=== PATIENT | female | born 1950 ===

== ENCOUNTER 2022-10-07 10:02 | Day surgery (SDC) | payer MEDICARE, OTHER ==
--- NOTE | 2022-10-07 08:37 | HP ---
DATE OF SURGERY: 10/07/2022 HISTORY OF PRESENT ILLNESS: The patient is a 72-year-old with some anemia. No gross bloody stools or change in bowel movements. Family history of brother of colon cancer. Last colonoscopy was a couple of years ago. She has anemia, hemoccult positive. The patient is in need of EGD and colonoscopy for further evaluation. PAST MEDICAL HISTORY: Hypertension, anemia, diabetes mellitus type II, hyperlipidemia. PAST SURGICAL HISTORY: Cholecystectomy. Parathyroidectomy. Hysterectomy. section in the past. MEDICATIONS: PreserVision, vitamin C, iron, aspirin, atorvastatin, amlodipine, labetalol, metformin. ALLERGIES: NKDA. FAMILY HISTORY: Alzheimer's Disease. Brother of colon cancer. SOCIAL HISTORY: No smoking or alcohol abuse. REVIEW OF SYSTEMS: Fourteen systems reviewed. No chest pain or palpitations. Other systems negative or noncontributory as above and per preadmission questionnaire. PHYSICAL EXAMINATION: Height 5' 1". BMI 41.5. GENERAL: No acute distress. HEENT: Sclerae nonicteric. EOMI. Oral mucous membranes moist. NECK: No JVD. CHEST: Equal excursion, nonlabored breathing. CVS: Regular rate and rhythm. ABDOMEN: Soft. No peritoneal signs. EXTREMITIES: No significant edema. NEURO: Alert, oriented, moving extremities symmetrically. RECTAL: Deferred timed to endoscopy exam. PSYCH: Appropriate mood and affect. SKIN: Dry. IMPRESSION: Anemia. I recommend EGD and colonoscopy. Shown the risk sheet and explained in detail including but not limited to bleeding or infection, risk of bowel injury or perforation, risk of missed or nondiagnosis or incomplete exam possibly requiring barium swallow, barium enema, other studies or procedures. General risk of anesthesia or sedation, risk of bowel prep but not limited to, consent obtained. Will proceed with EGD and colonoscopy as an outpatient.
[2022-10-07] MEDS ORDERED: Lactated Ringers 1,000 ML IV SCH (10:30)
[2022-10-07] MEDS ORDERED: Sodium Chloride 0.9% 1000 ML 1,000 ML ONE (10:49)
[2022-10-07] MEDS ORDERED: Lactated Ringers 1,000 ML IV ONE (10:52)
[2022-10-07] MEDS ORDERED: Xylocaine-Mpf 2% 5 Ml Vial ONE (11:48)
[2022-10-07] MEDS ORDERED: DIPRIVAN 200 MG/20 ML IV ONE ×2 (11:48→12:07)
[2022-10-07] MEDS ORDERED: ROBINUL ONE (12:06)
[2022-10-07] MEDS ORDERED: ATROPINE SULFATE 1MG ONE (12:11)
[2022-10-07 13:03] VITALS: O2SAT 98
[2022-10-07 13:22] VITALS: BP 132/78; PULSE 78
--- NOTE | 2022-10-07 14:10 | OP ---
SURGERY DATE/TIME: 10/07/2022 1153 PREOPERATIVE DIAGNOSES: 1) Anemia. 2) Family history of colon cancer. POSTOPERATIVE DIAGNOSES: 1) ASA Class III. 2) Erosive gastritis (may account for some of her anemia). 3) Small colon polyps. 4) Mild diverticulosis. 5) Fair bowel prep. 6) Withdrawal time for colonoscopy approximately ten minutes. PROCEDURES: 1) EGD with cold biopsy of antrum for Helicobacter pylori. 2) Cold biopsy gastric body to evaluate for inflammation adjacent to erosive gastritis. 3) Colonoscopy to cecum. 4) Hot snare polypectomy sigmoid colon polyp. 5) Hot biopsy polypectomy transverse colon small polyp x2. 6) Hot biopsy polypectomy small early polyp versus hyperplastic lesion rectum x5. SURGEON: Dr. Omkar Gordon. ANESTHESIA: MAC. ESTIMATED BLOOD LOSS: Minimal. INDICATIONS: As noted above. Risks and benefits explained in detail and not limited to and consent obtained. DESCRIPTION OF PROCEDURE AND FINDINGS: The patient is taken to the endoscopy room. MAC anesthesia introduced. After official time out and no disagreement with planned procedure, bite block positioned. Video gastroscope easily passed down the esophagus to the patent pylorus to the junction of the third portion of the duodenum. Third, second and first portions of duodenum grossly unremarkable. No signs of any ulcers or erosions. No signs of any bleeding source. The scope is pulled back into the antrum. There was some gastric erythema and appeared two or three little petechial hemorrhages but no evidence of any ulcers just some mild erythema. On retroflex in the gastric body, there was evidence of small erosion. It looked like it could account for a little bit of blood loss. The patient's said she had been taking some aspirin recently. No active bleeding currently. The scope pulled back up. The inflammation and erosion was biopsied for completeness. Cold biopsy taken. Good hemostasis noted. The Z-line was crisp. No signs of any erosions. No signs of any obvious masses. The scope pulled up through the esophagus. No obvious mucosal lesions. The scope is withdrawn. Attention is then turned to colonoscopy. Digital rectal exam did not reveal any rectal masses. She did have some small internal and externa hemorrhoids. Video colonoscope inserted and passed up the tortuous sigmoid, descending, transverse, ascending colon and with external pressure the scope passed around to the cecum. Appendiceal orifice and valve well visualized and photo documented. Scope is carefully withdrawn over the next ten minutes. Prep was only fair with a fair amount of liquidy, semisolid stool throughout the colon this is suctioned and irrigated as clear as possible just slightly limiting the exam for small lesions. Scope was slowly and carefully withdrawn. Two small early polyps in the transverse colon removed with hot biopsy polypectomy. Good hemostasis noted. There was a 3.5 mm pedunculated polyp in the sigmoid removed with hot snare polypectomy. The staff said that it was in the suction trap. Scope pulled back. She did have some mild diverticulosis, small diverticula in the left colon. No signs of any large polyps, masses or obstructing lesions. There were five small early polyps versus hyperplastic lesions in the rectum removed with hot biopsy polypectomy. Good hemostasis noted. The scope is withdrawn. Findings discussed with the family out in the waiting area. There was no major source of bleeding. She may have a little bit of blood loss in the stomach but no signs of any ulcers. No signs of any obvious masses. The patient tolerated the procedure well. There were no immediate complications. I will see her back in the office in a week or two.
== END 2022-10-07 13:25 | disposition home or self-care (01) ==
LOC: SDC 10:02
PROVIDERS: ATTEND Surgery
DX: K29.70 Gastritis, unspecified, without bleeding (principal); D64.9 Anemia, unspecified; E11.9 Type 2 diabetes mellitus without complications; Z80.0 Family history of malignant neoplasm of digestive organs; K57.30 Diverticulosis of large intestine without perforation or abscess without bleeding; K64.4 Residual hemorrhoidal skin tags; K64.8 Other hemorrhoids; D12.7 Benign neoplasm of rectosigmoid junction; D12.5 Benign neoplasm of sigmoid colon; D12.3 Benign neoplasm of transverse colon
CPT/HCPCS: 82947; 99100; J0461; J2704